=== PATIENT | female | born 1970 ===

== ENCOUNTER 2020-08-13 10:06 | Emergency (ER) | payer SELFPAY ==
[~2020-08-13] VITALS: Ht 177.8 cm; Wt 65.9 kg
[2020-08-13 10:19] VITALS: BP 126/76; Ht 177.8 cm; Wt 65.9 kg
[2020-08-13] MEDS ORDERED: HYDROCODON-ACE1 EAC7 PO (12:07)
[2020-08-13] MEDS ORDERED: NAPROSYN500 MG PO (12:07)
== END 2020-08-13 12:16 | disposition home or self-care (01) ==
LOC: D.ER 10:06
DX: S43.402A Unspecified sprain of left shoulder joint, initial encounter (principal); M25.512 Pain in left shoulder; X50.9XXA Other and unspecified overexertion or strenuous movements or postures, initial encounter; Y93.9 Activity, unspecified; Y92.9 Unspecified place or not applicable